=== PATIENT | male | born 1960 | race Caucasian/White ===

== ENCOUNTER 2024-09-02 05:51 | Day surgery (SDC) | payer BC ==
[2024-08-25 13:37] VITALS: BMI 38.6
[2024-09-02] MEDS ORDERED: PHENYLEPHRINE-NS 100 MCG/ML 10 ML SYRINGE ONE (06:42)
[2024-09-02] MEDS ORDERED: PROPOFOL 20 ML ONE (06:42)
[2024-09-02] MEDS ORDERED: Lidocaine 1% (PF) 30 ML VIAL ONE (06:43)
== END 2024-09-02 08:35 | disposition home or self-care (01) ==
LOC: SDC 05:51
PROVIDERS: ATTEND Internal Medicine Cardiovascular Disease
PROC: 5A2204Z Restoration of Cardiac Rhythm, Single (ICD-10-PCS; principal; 2024-09-02)
DX: I48.0 Paroxysmal atrial fibrillation (principal); I10 Essential (primary) hypertension; Z98.890 Other specified postprocedural states; Z87.891 Personal history of nicotine dependence; Z79.01 Long term (current) use of anticoagulants; Z79.899 Other long term (current) drug therapy
CPT/HCPCS: 92960; 93005; 93010; J2704